=== PATIENT | male | born 1990 | race Caucasian/White ===

== ENCOUNTER 2021-07-07 08:44 | Emergency (ER) | payer MEDICAID, OTHER ==
[~2021-07-07] VITALS: Ht 190.5 cm; Wt 69.0 kg
[~2021-07-07 08:44] MED LIST: IBUP-2741 PO
[2021-07-07 10:14] LABS: CHLORIDE 106 mEq/L (98-107)
[2021-07-07] MEDS ORDERED: BUSP10TA4 MT (11:24)
[2021-07-07 11:39] VITALS: BP 130/88
== END 2021-07-07 12:08 | disposition home or self-care (01) ==
LOC: ER 08:44
DX: R07.89 Other chest pain (principal); R00.0 Tachycardia, unspecified; F41.9 Anxiety disorder, unspecified
CPT/HCPCS: 36415; 71045; 80048; 84484; 85379; 93005; 99285